=== PATIENT | female | born 1960 | race Caucasian/White ===

== ENCOUNTER → 2018-04-19 | Outpatient (CLI) | payer OTHER | END | disposition home or self-care (01) | LOC: HKI 14:14 | DX: M17.12 Unilateral primary osteoarthritis, left knee (principal); M25.561 Pain in right knee; S83.242A Other tear of medial meniscus, current injury, left knee, initial encounter | CPT/HCPCS: 73564; 73564-LT ==

== ENCOUNTER → 2018-05-06 | Outpatient (CLI) | payer OTHER | END | disposition home or self-care (01) | LOC: HKI 11:04 | DX: M17.12 Unilateral primary osteoarthritis, left knee (principal); E11.8 Type 2 diabetes mellitus with unspecified complications; Z79.84 Long term (current) use of oral hypoglycemic drugs | CPT/HCPCS: 20610 ==

== ENCOUNTER → 2018-08-30 | Outpatient (CLI) | payer OTHER | END | disposition home or self-care (01) | LOC: HKI 13:35 | DX: M25.562 Pain in left knee (principal); S83.242D Other tear of medial meniscus, current injury, left knee, subsequent encounter; X58.XXXD Exposure to other specified factors, subsequent encounter | CPT/HCPCS: Z7500 ==

== ENCOUNTER → 2018-10-17 | Outpatient (CLI) | payer OTHER | END | disposition home or self-care (01) | LOC: HKI 09:34 | DX: Z01.818 Encounter for other preprocedural examination (principal) | CPT/HCPCS: Z7500 ==

== ENCOUNTER 2018-10-19 11:22 | Day surgery (SDC) | payer OTHER ==
[~2018-10-19 11:22] MED LIST: LACTATED RINGER'S 1,000 ML IV*
[2018-10-19] MEDS ORDERED: NEOSTIGMINE 3 MG/3 ML SYRINGE (12:05)
[2018-10-19] MEDS ORDERED: PROPOFOL 20 ML (12:05)
[2018-10-19] MEDS ORDERED: GLYCOPYRROLATE 0.4 MG INJ (12:05)
[2018-10-19] MEDS ORDERED: FENTAnyl 50 MCG/ML VIAL (12:05)
[2018-10-19] MEDS ORDERED: MIDAZOLAM 1 MG/ML 2 ML INJ (12:05)
[2018-10-19] MEDS ORDERED: ROCURONIUM 50 MG INJ (12:05)
[2018-10-19] MEDS ORDERED: DEXAMETHASONE 4 MG/ML 1 ML INJ (12:05)
[2018-10-19] MEDS ORDERED: ONDANSETRON 4 MG INJ (12:05)
[2018-10-19] MEDS ORDERED: CEFAZOLIN 1 GM INJ (12:05)
[2018-10-19] MEDS ORDERED: hydrALAzine 20 MG INJ IV (13:00)
[2018-10-19] MEDS ORDERED: DIPHENHYDRAMINE 50 MG INJ IV (13:00)
[2018-10-19] MEDS ORDERED: LIDOCAINE 2% (SDV) 5 ML INJ (13:00)
[2018-10-19] MEDS ORDERED: LABETALOL HCL 20MG INJ IV (13:00)
[2018-10-19] MEDS ORDERED: HYDROmorphONE 1 MG/5 ML IV SYRINGE IV ×2 (13:00)
[2018-10-19] MEDS ORDERED: TRIMETHOBENZAMIDE 100 MG/ML VIAL IM (13:00)
[2018-10-19] MEDS ORDERED: ALBUTEROL 0.083% (NEB) 2.5 MG/3 ML AMP HHN (13:00)
[2018-10-19] MEDS ORDERED: OXYCODONE/ACETAMINOPHEN (5/325) TAB PO ×2 (13:00)
[2018-10-19] MEDS ORDERED: HYDROCODONE/APAP (5/325) TAB PO ×2 (13:00)
[2018-10-19] MEDS ORDERED: IPRATROPIUM (NEB) 0.5 MG/2.5 ML AMP HHN (13:00)
[2018-10-19] MEDS ORDERED: EPHEDrine SULFATE 50 MG/5 ML SYG IV (13:00)
[2018-10-19] MEDS ORDERED: DESFLURANE 15 MIN (13:00)
[2018-10-19] MEDS ORDERED: ONDANSETRON 4 MG INJ IV ×2 (13:00)
[2018-10-19] MEDS ORDERED: MIDAZOLAM 1 MG/ML 2 ML INJ IV (13:00)
[2018-10-19] MEDS ORDERED: FENTAnyl 50 MCG/ML VIAL IV ×2 (13:00)
[2018-10-19] MEDS ORDERED: MEPERIDINE 25 MG INJ IV (13:00)
[2018-10-19] MEDS: CEFAZOLIN 1 GM/50 ML (PMX) 50 ML IVPB (13:20)
[2018-10-19] MEDS: TRIAMCINOLONE ACET 40 MG/ML INJ (13:49)
[2018-10-19] MEDS: LIDOCAINE 1% (STERILE-PAK) 30 ML INJ (13:49)
[2018-10-19] MEDS ORDERED: METOCLOPRAMIDE 10 MG INJ (13:53)
[2018-10-19] MEDS ORDERED: KETOROLAC 30 MG INJ (13:53)
[2018-10-19] MEDS: HYDROmorphONE 1 MG/5 ML IV SYRINGE IV (14:52)
[2018-10-19] MEDS: FENTAnyl 50 MCG/ML VIAL IV (14:53)
== END 2018-10-19 15:46 | disposition home or self-care (01) ==
LOC: SDS 11:22
DX: M23.222 Derangement of posterior horn of medial meniscus due to old tear or injury, left knee (principal); M94.262 Chondromalacia, left knee; E11.9 Type 2 diabetes mellitus without complications; J45.909 Unspecified asthma, uncomplicated
CPT/HCPCS: 29881; 71045; 82962

== ENCOUNTER → 2018-10-31 | Outpatient (CLI) | payer OTHER | END | disposition home or self-care (01) | LOC: HKI 09:24 | DX: Z48.89 Encounter for other specified surgical aftercare (principal) ==